=== PATIENT | female | born 1965 | race Asian ===

== ENCOUNTER 2018-04-04 01:41 | Emergency (ER) | payer OTHER ==
[2018-04-04 02:04] VITALS: BP 125/81; PULSE 85; TEMP 97.9; BMI 26.0
--- NOTE | 2018-04-04 02:09 | PDOC ---
History of Present Illness - General Chief Complaint: Pain, Acute Stated Complaint: L SIDED PAIN Time Seen by Provider: 04/04/18 02:09 History Source: Patient, Family - History of Present Illness Initial Comments: 04/04/18 02:45 52 year old female with PMH HTN, DM presented to ED for left upper abdominal burning since yesterday, worsening today. She stated the burning is constant, nonradiating, no alleviating or aggravating factors. She admitted to nausea, dysuria, left sided flank pain, and burning "all over". She denied chest pain, shortness of breath, vomiting, diarrhea, blood in stool, hematuria. She stated she ran out of her omeprazole 20 mg yesterday. Past History - Past Medical History Allergies/Adverse Reactions: Allergies Allergy/AdvReac Type Severity Reaction Status Date / Time No Known Drug Allergies Allergy Verified 04/04/18 02:04 Home Medications: Ambulatory Orders Oseltamivir Phosphate [Tamiflu -] 75 mg PO BID #10 capsule 08/25/15 Promethazine HCl/Codeine [Prometh-Codein 6.25-10 mg/5 ml] 5 ml PO Q8H PRN #60 syrup MDD 4 08/25/15 Anemia: No Asthma: No Cancer: No Cardiac Disorders: No CVA: No COPD: No CHF: No Dementia: No Diabetes: No GI Disorders: Yes (GERD) Disorders: Yes (RENAL CALCULI) HTN: No Hypercholesterolemia: No Liver Disease: No Seizures: No Thyroid Disease: No - Surgical History Abdominal Surgery: No Appendectomy: No Cardiac Surgery: No Cholecystectomy: No Lung Surgery: No Neurologic Surgery: No Orthopedic Surgery: No - Suicide/Smoking/Psychosocial Hx Smoking Status: No Smoking History: Never smoked Have you smoked in the past 12 months: No Number of Cigarettes Smoked Daily: 0 Information on smoking cessation initiated: No Hx Alcohol Use: No Drug/Substance Use Hx: No Substance Use Type: None Hx Substance Use Treatment: No Review of Systems - Review of Systems Able to Perform ROS?: Yes Constitutional: No: Chills, Fever HEENTM: No: Nose Congestion, Throat Pain Respiratory: No: Cough, Shortness of Breath Cardiac (ROS): No: Chest Pain, Palpitations ABD/GI: Yes: Nausea. No: Blood Streaked Bowels, Diarrhea, Vomiting, Tarry Stools : Yes: Dysuria, Flank Pain. No: Hematuria Musculoskeletal: No: Joint Swelling, Joint Stiffness Neurological: No: Numbness, Tingling, Dizziness Hematologic/Lymphatic: No: Easy Bleeding, Easy Bruising *Physical Exam - Vital Signs Last Vital Signs Temp Pulse Resp BP Pulse Ox 97.9 F 85 17 125/81 98 04/04/18 01:45 04/04/18 01:45 04/04/18 01:45 04/04/18 01:45 04/04/18 01:45 - Physical Exam Comments: 04/04/18 02:55 Constitutional: well developed, well nourished. HEENT: head is normocephalic, atraumatic. EOMI. PERRLA. dry oral mucosa. Neck: supple. full ROM. Heart: regular rhythm. no murmurs. Lungs: nonlabored breathing. clear to auscultation bilaterally. Abdomen: soft, nontender. normal bowel sounds. no rebound, no guarding. Back: no CVA tenderness bilaterally. Extremities: peripheral pulses intact and equal. no lower extremity edema. Neurological: CN2-12 grossly intact. Moves all four extremities. Psych: awake, alert, oriented to person. follows commands. answers questions appropriately. ED Treatment Course - LABORATORY CBC & Chemistry Diagram: 04/04/18 02:30 04/04/18 02:30 Medical Decision Making - Medical Decision Making 04/04/18 02:57 52 year old female with PMH HTN, DM presented to ED for LUQ burning, dysuria, nausea, "burning all over" x2 days, worsening today. Initial Vital Signs Temp Pulse Resp BP Pulse Ox 97.9 F 85 17 125/81 98 04/04/18 01:45 04/04/18 01:45 04/04/18 01:45 04/04/18 01:45 04/04/18 01:45 Afebrile. No tachycardia. No tachypnea. No hypotension. No hypoxia on room air. Pending EKG, troponin and CK x2. Pending CBC, CMP, lipase. Pending UA/UC. Tylenol ordered for pain. Pepcid and Maalox ordered for epigastric burning. 04/04/18 04:40 Labs reviewed: - No leukocytosis, no anemia - No electrolyte abnormalities, no CAROL - UA positive for blood, no UTI - Troponin negative - CK negative Spiral Abdominal CT ordered for evaluation of nephrolithiasis. Pending EKG and repeat cardiac enzymes. 04/04/18 05:50 Repeat troponin and CK negative. 04/04/18 06:23 EKG performed at 0556: rate 75, regular rhythm, normal axis, normal intervals, no acute ST changes. CT abdomen/pelvis report: no localized findings for acute pathology. Pt to be discharged. *DC/Admit/Observation/Transfer Diagnosis at time of Disposition: Epigastric burning sensation - Discharge Dispostion Disposition: HOME Condition at time of disposition: Stable Decision to Admit order: No - Referrals Referrals: Ricky Nava MD [Primary Care Provider] - - Patient Instructions Additional Instructions: You were seen today for upper abdominal burning sensation. Your lab work was normal. Your urine analysis showed no urinary tract infection, but did show blood in the urine, follow up on this finding with your primary care doctor. Your Catscan of your abdomen was normal, there is no kidney stone. Your EKG was normal. Follow up with your primary care doctor in 1-2 days, call their office today and make an appointment for as soon as available. Return to the Emergency Department for increasing pain, shortness of breath, chest pain, palpitations, racing heart, lightheadedness like you may pass out, vomiting, fever or any other new, worsening or concerning symptoms. Call the pharmacy today to refill your omeprazole prescription. - Post Discharge Activity Forms/Work/School Notes: Back to Work
--- NOTE | 2018-04-04 02:12 | PDOC ---
Attending Attestation - Resident Resident Name: JayceeZoya rao - HPI HPI: 04/04/18 05:00 pt presents to the ED complaining of burning pain to her epigastrium and left flank. Denies fever, nausea or vomiting. Complains of urinary frequency without dysuria. - Physicial Exam PE: 04/04/18 05:04 Agree with resident exam. Patient is alert and oriented and in no acute distress. Abdomen is soft, non tender and non distended. - Medical Decision Making 04/04/18 05:06 Pt presents to the ED complaining of L flank pain. Abdomen is non tender. LAbs are unremarkable except for hematuria. Will check CT non con to rule out renal stone.
[2018-04-04] MEDS ORDERED: FAMOTIDINE 20 MG/50 ML IVPB 20 MG/50 ML MG IVPB ONE ×2 (02:44→03:07)
[2018-04-04] MEDS ORDERED: MAG HYDROX/AL HYDROX/SIMETH 30 ML UNIT-DOSE CUP PO ONE (02:45)
[2018-04-04] MEDS ORDERED: ONDANSETRON 4 MG/2 ML VIAL IVPUSH ONE (02:45)
[2018-04-04 02:55] LABS: URINE APPEARANCE CLEAR; URINE BILIRUBIN NEGATIVE (<2.0 mg/dL); URINE COLOR STRAW; URINE GLUCOSE (UA) NEGATIVE (NEGATIVE); URINE KETONE NEGATIVE (NEGATIVE); URINE LEUK ESTERASE TRACE (NEGATIVE); URINE NITRITE NEGATIVE (NEGATIVE); URINE PROTEIN NEGATIVE (NEGATIVE); URINE UROBILINOGEN NEGATIVE mg/dL (0.2-1.0)
[2018-04-04] MEDS ORDERED: ACETAMINOPHEN 1000 MG/100 ML VIAL (NON FORMULARY) IVPB ONE (02:57)
[2018-04-04 03:01] LABS: EPI CELLS RARE /HPF (FEW); URINE BACTERIA RARE /hpf (NONE SEEN); URINE MUCUS RARE
[2018-04-04 03:03] LABS: EOS % 2.4 % (0-4.5); LYMPH % 23.8 % (8-40); MCH 27.7 pg (25.7-33.7); MCHC 34.1 g/dl (32.0-36.0); MEAN CELL VOLUME 81.5 fl (80-96); MEAN PLT VOLUME 8.9 fl (7.5-11.1); MONO % 7.3 % (3.8-10.2); NEUT % 65.5 % (42.8-82.8); PLATELET COUNT 360 K/MM3 (134-434); RBC 5.04 M/mm3 (3.60-5.2); RDW 14.1 % (11.6-15.6); WHITE BLOOD COUNT 8.7 K/mm3 (4.0-10.0)
[2018-04-04] MEDS ORDERED: MAG HYDROX/AL HYDROX/SIMETH 30 ML UNIT-DOSE CUP ONE (03:07)
[2018-04-04] MEDS ORDERED: ONDANSETRON 4 MG/2 ML VIAL ONE (03:07)
[2018-04-04] MEDS ORDERED: ACETAMINOPHEN INJECTION 100 ML IVPB ONE (03:07)
[2018-04-04 03:16] LABS: INR 0.98 (0.83-1.09); PROTHROMBIN TIME (PATIENT) 11.6 SEC (9.7-13.0)
[2018-04-04 03:18] LABS: ACTIVATED PTT 30.4 SECONDS (25.2-36.5)
[2018-04-04 03:41] LABS: ALK PHOS 132 U/L (45-117); ANION GAP 7 MMOL/L (8-16); BLOOD UREA NITROGEN 9 mg/dL (7-18); CHLORIDE 103 mmol/L (98-107); CO2 29 mmol/L (21-32); CREATININE 0.7 mg/dL (0.55-1.3); GLUCOSE,RANDOM 103 mg/dL (74-106); LIPASE 179 U/L (73-393); POTASSIUM 4.6 mmol/L (3.5-5.1); SGOT/AST 19 U/L (15-37); SGPT/ALT 29 U/L (13-61); SODIUM 139 mmol/L (136-145); TOT PROT 7.8 g/dl (6.4-8.2)
--- NOTE | 2018-04-04 10:33 | EKG ---
Test Reason : Blood Pressure : / mmHG Vent. Rate : 075 BPM Atrial Rate : 075 BPM P-R Int : 168 ms QRS Dur : 086 ms QT Int : 390 ms P-R-T Axes : 044 002 010 degrees QTc Int : 435 ms NORMAL SINUS RHYTHM NORMAL ECG WHEN COMPARED WITH ECG OF 21-MAR-2014 15:48, NO SIGNIFICANT CHANGE WAS FOUND Confirmed by Juan Manuel Phillips MD ([id number]) on 04/04/2018 10:33:06 AM Referred By: Confirmed By:Juan Manuel Phillips MD
== END 2018-04-04 06:37 | disposition home or self-care (01) ==
LOC: JER 01:41
PROC: 3E033GC Introduction of Other Therapeutic Substance into Peripheral Vein, Percutaneous Approach (ICD-10-PCS; principal; 2018-04-04)
PROC: 3E033NZ Introduction of Analgesics, Hypnotics, Sedatives into Peripheral Vein, Percutaneous Approach (ICD-10-PCS; 2018-04-04)
PROC: 3E033GC Introduction of Other Therapeutic Substance into Peripheral Vein, Percutaneous Approach (ICD-10-PCS; 2018-04-04)
DX: R10.13 Epigastric pain (principal); K21.9 Gastro-esophageal reflux disease without esophagitis; Z87.442 Personal history of urinary calculi
CPT/HCPCS: 36415; 74176; 80053; 81003; 81015; 82550; 83690; 84484; 85025; 85610; 85730; 87086; 93005; 93010; 96365; 96375; 99282-25; J0131

== ENCOUNTER 2019-12-15 16:19 | Emergency (ER) | payer OTHER ==
[2019-12-15 16:27] VITALS: BP 113/67; PULSE 85; TEMP 98; BMI 27.3
--- NOTE | 2019-12-15 16:27 | PDOC ---
Rapid Medical Evaluation Time Seen by Provider: 12/15/19 16:23 Medical Evaluation: Allergies Allergy/AdvReac Type Severity Reaction Status Date / Time No Known Drug Allergies Allergy Verified 12/15/19 16:23 12/15/19 16:23 I performed a brief in-person evaluation of this patient. Pt is a 54 y/o female with complaint of right sided headache for the last 5 days. She is sensitive to light. She has been having nausea and vomiting. She has not headaches like this for a long time. Gradually getting worse. Walking makes the MUNGUIA worse. Pertinent physical exam findings: walking without ataxia, speaking in full sentences, no significant facial droop I have ordered the following: labs, ct head, saline lock, reglan Patient to proceed to ED for further evaluation. Discharge Disposition - Diagnosis Headache - Referrals - Patient Instructions - Post Discharge Activity
[2019-12-15] MEDS ORDERED: METOCLOPRAMIDE HCL INJECTION 10 MG/2 ML VIAL IVPB ONE (16:28)
[2019-12-15] MEDS ORDERED: SODIUM CHLORIDE 0.9% 500 ML INFUS.BAG IV ONE (16:28)
[2019-12-15] MEDS ORDERED: METOCLOPRAMIDE HCL INJECTION 10 MG/2 ML VIAL ONE (17:47)
--- NOTE | 2019-12-15 17:56 | PDOC ---
History of Present Illness - General Chief Complaint: CVA/TIA Stated Complaint: REFERRED BY PCP MIGRANES Time Seen by Provider: 12/15/19 16:23 - History of Present Illness Initial Comments: Pt is a 54yo F with hx of DM and HTN who presents with headache. Pt speaks Upper Sorbian, and daughter is at bedside translating. Pt has had R sided headache for 5 days, described as a sharp constant pain that is worse with movement, gradually worse heide over the last 2 days. At rest, pain is 7-8/10 and with movement, pain is 10/10. Pt was seen by Dr. Quinones for similar symptoms two days ago and was given sumatriptan, which has not improved symptoms. She has also tried Tylenol with no improvement. Head pain is located diffusely throughout R head, R ear, and R neck, with most pain at R occiput. Reports associated decrease in vision over last 5 days, generalized weakness, paresthesias to b/l fingertips, dizziness (room spinning), and nausea. Reports history of similar R sided headaches >15 years ago, which was treated with unknown medication and injections in [place]. Reports long standing history of L left pain. Denies f/c, vomiting, chest pain, abdominal pain, syncope. PCP: Joni PMH: DM and HTN (not on medications; per chart review) Meds: omeprazole, duloxetine (denies any recent changes in medications) All: NKDA Social: denies tobacco, etoh, and illicit drug use 12/15/19 18:58 Past History - Medical History Allergies/Adverse Reactions: Allergies Allergy/AdvReac Type Severity Reaction Status Date / Time No Known Drug Allergies Allergy Verified 12/15/19 16:23 Home Medications: Ambulatory Orders Oseltamivir Phosphate [Tamiflu -] 75 mg PO BID #10 capsule 08/25/15 Promethazine HCl/Codeine [Prometh-Codein 6.25-10 mg/5 ml] 5 ml PO Q8H PRN #60 syrup MDD 4 08/25/15 Anemia: No Asthma: No Cancer: No Cardiac Disorders: No CVA: No COPD: No CHF: No Dementia: No Diabetes: No GI Disorders: Yes (GERD) Disorders: Yes (RENAL CALCULI) HTN: No Hypercholesterolemia: No Liver Disease: No Seizures: No Thyroid Disease: No - Surgical History Abdominal Surgery: No Appendectomy: No Cardiac Surgery: No Cholecystectomy: No Lung Surgery: No Neurologic Surgery: No Orthopedic Surgery: No - Psycho-Social/Smoking History Smoking Status: No Smoking History: Never smoked Have you smoked in the past 12 months: No Number of Cigarettes Smoked Daily: 0 - Substance Abuse Hx (Audit-C & DAST Scrn) How often the patient has a drink containing alcohol: Never Score: In Men: 4 or > Positive; In Women: 3 or > Positive: 0 Screen Result (Pos requires Nsg. Audit-10AR): Negative In the last yr the pt used illegal drug/Rx for NonMed reason: No Score: Yes response is considered Positive: 0 Screen Result (Positive result requires Nsg. DAST-10): Negative Review of Systems - Review of Systems Comments:: CONSTITUTIONAL:denies fever, chills, diaphoresis, generalized weakness, malaise, loss of appetite HEENT:reports R ear pain, visual changes; denies rhinorrhea, nasal congestion, sore throat, eye pain CARDIOVASCULAR:denies chest pain, syncope, palpitations, irregular heart rate, peripheral edema RESPIRATORY:denies cough, shortness of breath, wheezing GASTROINTESTINAL: reports nausea; denies abdominal pain, vomiting, diarrhea, constipation, melena, hematochezia GENITOURINARY:denies dysuria, frequency, urgency, hesitancy, hematuria MUSCULOSKELETAL: reports R neck pain;denies myalgia, arthralgia, back pain HEMATOLOGIC/IMMUNOLOGIC:denies easy bleeding, easy bruising ENDOCRINE: denies unexplained weight gain, unexplained weight loss NEUROLOGIC:reports headache, paresthesias of b/l fingertips, dizziness; denies LOC, unsteady gait, mental status changes, bladder or bowel incontinence SKIN:denies rash, itching *Physical Exam - Vital Signs Last Vital Signs Temp Pulse Resp BP Pulse Ox 98.0 F 85 18 113/67 100 12/15/19 16:23 12/15/19 16:23 12/15/19 16:23 12/15/19 16:23 12/15/19 16:23 - Physical Exam General: awake, alert, fully oriented, in no acute distress, well developed, well nourished Head: normocephalic, atraumatic Eyes: PERRL, EOMI, anicteric sclera, conjunctiva clear ENT: Auricles normal inspection, hearing grossly normal, nares patent, oropharynx clear without exudates. No nasal congestion Moist mucous membranes Neck: supple, normal ROM, no LAD, JVD or masses Lung: equal breath sounds b/l, CTA b/l, no crackles, wheezes; no distress, speaks full sentences Heart: RRR, normal S1, S2, no murmurs, rubs, gallops Abdomen: soft, non tender, normoactive bowel sounds, no guarding, rebound, masses Extremities: normal ROM, no edema, no erythema or tenderness, DP/PT pulses 2+ and symmetric, no clubbing, cyanosis Neuro: CN2-12 intact, moves all extremities, normal speech, normal gait, sensation intact, normal cerebellar exam; NIHSS 0 Skin: warm, dry, no rashes or lesions noted ED Treatment Course - LABORATORY CBC & Chemistry Diagram: 12/15/19 18:12 12/15/19 18:12 Medical Decision Making - Medical Decision Making Pt is 54yo F with DM and HTN who presents with headache. Vital Signs Period Temp Pulse Resp BP Sys/Long Pulse Ox Last 24 Hr 98.0 F 85 18 113/67 100 DDx: cluster headache, migraine, temporal arteritis Plan: pain control, head CT signed out patient to night team, pending reassessment, head CT Discharge - Discharge Information Problems reviewed: Yes Clinical Impression/Diagnosis: Headache Qualifiers: Headache type: unspecified Headache chronicity pattern: acute headache Intractability: not intractable Qualified Code(s): R51 - Headache Condition: Improved Disposition: HOME - Follow up/Referral Referrals: Jeramy Cerda MD [Staff Physician] - Caleb Gunderson MD [Staff Physician] - Tello Quinones MD [Primary Care Provider] - - Patient Discharge Instructions Patient Printed Discharge Instructions: DI for Headache Additional Instructions: You were seen in the ED for a headache and reported improvement after receiving medications follow-up with PCP in 1-2 days and to return to the ED for worsening of headache or any other concerns It is equally important that you follow up with a neurologist in the next 1-2 days as well we have provided their information in this discharge packet. RETURN TO THE ER: if your headache returns and is not relieved with tylenol or the medications prescribed by your doctor -fevers, chills, -nausea and vomiting that will not stop. - Post Discharge Activity
[2019-12-15 18:19] LABS: EOS % 0.8 % (0-4.5); HEMATOCRIT 39.7 % (32.4-45.2); HEMOGLOBIN 12.8 GM/dL (10.7-15.3); MCH 26.2 pg (25.7-33.7); MCHC 32.3 g/dl (32.0-36.0); MEAN CELL VOLUME 81.2 fl (80-96); MEAN PLT VOLUME 8.7 fl (7.5-11.1); MONO % 5.9 % (3.8-10.2); NEUT % 75.3 % (42.8-82.8); PLATELET COUNT 330 K/MM3 (134-434); RBC 4.89 M/mm3 (3.60-5.2); RDW 14.4 % (11.6-15.6)
[2019-12-15 18:38] LABS: PROTHROMBIN TIME (PATIENT) 11.8 SEC (9.7-13.0)
[2019-12-15 18:49] LABS: ALBUMIN 3.9 g/dl (3.4-5.0); BILIRUBIN,TOTAL 0.6 mg/dL (0.2-1); BLOOD UREA NITROGEN 25.8 mg/dL (7-18); CALCIUM 9.6 mg/dL (8.5-10.1); CREATININE 0.7 mg/dL (0.55-1.3); POTASSIUM 3.9 mmol/L (3.5-5.1)
[2019-12-15] MEDS ORDERED: ACETAMINOPHEN 1000 MG/100 ML VIAL (NON FORMULARY) IVPB ONE (19:00)
--- NOTE | 2019-12-15 19:19 | PDOC ---
*Physical Exam - Vital Signs Last Vital Signs Temp Pulse Resp BP Pulse Ox 98.0 F 85 18 113/67 100 12/15/19 16:23 12/15/19 16:23 12/15/19 16:23 12/15/19 16:23 12/15/19 16:23 ED Treatment Course - LABORATORY CBC & Chemistry Diagram: 12/15/19 18:12 12/15/19 18:12 - ADDITIONAL ORDERS Additional order review: Laboratory Results 12/15/19 12/15/19 18:12 18:12 PT with INR 11.80 INR 1.00 Sodium 141 Potassium 3.9 Chloride 110 H Carbon Dioxide 26 Anion Gap 5 L BUN 25.8 H Creatinine 0.7 Est GFR (CKD-EPI)AfAm 113.05 Est GFR (CKD-EPI)NonAf 97.54 Random Glucose 104 Calcium 9.6 Total Bilirubin 0.6 AST 13 L ALT 25 Alkaline Phosphatase 118 H Total Protein 8.0 Albumin 3.9 12/15/19 18:12 RBC 4.89 MCV 81.2 MCHC 32.3 RDW 14.4 MPV 8.7 Neutrophils % 75.3 Lymphocytes % 17.0 D Monocytes % 5.9 Eosinophils % 0.8 Basophils % 1.0 - Medications Given in the ED: ED Medications Discontinued Medications Generic Name Dose Route Start Last Admin Trade Name Freq PRN Reason Stop Dose Admin Diphenhydramine HCl 25 mg 12/15/19 16:57 12/15/19 17:51 Benadryl Injection - IVPUSH 12/15/19 16:58 25 mg ONCE ONE Administration Metoclopramide HCl 10 mg 12/15/19 16:28 12/15/19 17:51 Reglan Injection - IVPB 12/15/19 16:29 10 mg ONCE ONE Administration Sodium Chloride 1,000 ml 12/15/19 16:28 12/15/19 17:51 Normal Saline - IV 12/15/19 16:29 1,000 ml ONCE ONE Administration Medical Decision Making - Medical Decision Making 12/15/19 19:18 54yo F with hx of DM and HTN who presents with headache of 5 day duration Dorcas Quinones, prescribed sumatriptan and tylenol which have not relieved pain pending ct read and reassesment of pain head ct: no acute intracranial pathology 12/15/19 19:45 pt feeling better after medications will d/c home with neurology follow up. 12/15/19 19:53 Discharge - Discharge Information Problems reviewed: Yes Clinical Impression/Diagnosis: Headache Condition: Improved Disposition: HOME - Follow up/Referral Referrals: Tello Quinones MD [Primary Care Provider] - Jeramy Cerda MD [Staff Physician] - Caleb Gunderson MD [Staff Physician] - - Patient Discharge Instructions Patient Printed Discharge Instructions: DI for Headache Additional Instructions: You were seen in the ED for a headache and reported improvement after receiving medications follow-up with PCP in 1-2 days and to return to the ED for worsening of headache or any other concerns It is equally important that you follow up with a neurologist in the next 1-2 days as well we have provided their information in this discharge packet. RETURN TO THE ER: if your headache returns and is not relieved with tylenol or the medications prescribed by your doctor -fevers, chills, -nausea and vomiting that will not stop. - Post Discharge Activity
[2019-12-15] MEDS ORDERED: ACETAMINOPHEN INJECTION 100 ML IVPB ONE (19:23)
--- NOTE | 2019-12-15 19:48 | PDOC ---
Documentation entered by Xuan Madden SCRIBE, acting as scribe for Allison Manzanares MD. Alliosn Manzanares MD: This documentation has been prepared by the scribe, Xuan Madden SCRIBE, under my direction and personally reviewed by me in its entirety. I confirm that the documentation accurately reflects all work, treatment, procedures, and medical decision making performed by me. Attending Attestation - Resident Resident Name: Sanjuanita Light - ED Attending Attestation I have performed the following: I have examined & evaluated the patient, The case was reviewed & discussed with the resident, I agree w/resident's findings & plan - HPI HPI: 12/15/19 17:13 Ms. Bel Turner is a 54-year-old female with a past medical history significant for HTN and DM who presents to the emergency department with 5 days of gradually worsening, sharp, constant, right-sided headache associated with bilateral blurry vision and nausea. The patient reports she was taking Tylenol morning and night for the first 2 days without relief, Patient followed up with PCP who prescribed Sumatriptan, reports shes been taking the medication since, without relief. Denies similar headaches in the past. Denies fever, chills, chest pain, SOB, palpitation, dizziness, weakness, diarrhea, vomiting, abdominal pain, bladder and bowel problems, leg swelling, No sick contacts or travel. No new changes in medications. Allergies: NKDA Past Medical History: HTN and DM. Social history: Lives with family. No tobacco, ETOH or drug use. Surgical history: None reported. Meds: as documented in EMR PMD: Dr. Gerardo Quinones. - Physicial Exam PE: 12/15/19 17:15 Agree with the resident's HPI and PE as documented in the electronic medical record. NAD, alert and awake, oriented appropriately, well appearing, CN II-XII grossly intact. EOMI, PERRL, nl conjunctiva, anicteric; neck supple. lungs clear, RRR, abdomen soft nontender. No rebound, no guarding. Back nontender. KAUFMAN x4, no focal neuro deficits. Strength prox and distally 5/5 throughout. Sensation grossly intact to light touch. KAUFMAN x4. No cerebellar signs, no dysmetria, bilateral finger to nose and heel to [place] equal and symmetric. Speech clear. No peripheral edema. normal color for ethnicity, WWP. 12/15/19 19:47 - Medical Decision Making 12/15/19 19:46 Vital Signs Temp Pulse Resp BP Pulse Ox 98.0 F 85 18 113/67 100 12/15/19 16:23 12/15/19 16:23 12/15/19 16:23 12/15/19 16:23 12/15/19 16:23 DDX headache: migraine, tension, cluster headache, SAH, CVA, head bleed/ICH. vitals reviewed, wnl neuro intact, no deficits MDM: The patient presents with an acute onset headache for 5 days in duration. Patient has past history of headaches. There Is Not a history of ant icoagulation, trauma, , cancer or immunocompromised state. Mental status was normal, no neurological deficits were noted. - Based on the patient's history and physical there is very low clinical suspicion for significant intracranial pathology. The headache was NOT sudden onset, NOT maximal at onset, there are NO neurologic findings, the patient does NOT have a fever, the patient does NOT have any jaw claudication, the patient does NOT endorse a clotting disorder, patient DENIES any trauma or eye pain and the headache is NOT associated with dizziness or ataxia. Will treatment the pat ient symptomatically and reassess. - no meningeal signs Kernig and Brudzinski signs are negative, no petechiae, no photophobia, no dysarthria, no facial asymmetry, and no focal deficits. Very low clinical suspicion for meningitis. No evidence of subarachnoid hemorrhage, intracranial bleed, meningitis, encephalitis, temporal arteritis, or intracranial mass. Patient denies new weakness on one side of the body, diplopia, vertigo, slurred speech, headache, or difficulty walking. IV was placed and tylenol given with symptom relief CT head was negative for acute bleed, infarct, mass, or shift. no LP indicated, clinically doubt SAH with history. The patient improved significantly and was discharged in stable condition. Recommendations were given for follow-up with PCP and neurology in 1-2 days and to return to the ED for worsening of headache or any other concerns Discharge - Discharge Information Problems reviewed: Yes Clinical Impression/Diagnosis: Headache Condition: Improved Disposition: HOME - Admission No - Follow up/Referral Referrals: Jeramy Cerda MD [Staff Physician] - Caleb Gunderson MD [Staff Physician] - Tello Quinones MD [Primary Care Provider] - - Patient Discharge Instructions Patient Printed Discharge Instructions: DI for Headache Additional Instructions: You were seen in the ED for a headache and reported improvement after receiving medications follow-up with PCP in 1-2 days and to return to the ED for worsening of headache or any other concerns It is equally important that you follow up with a neurologist in the next 1-2 days as well we have provided their information in this discharge packet. RETURN TO THE ER: if your headache returns and is not relieved with tylenol or the medications prescribed by your doctor -fevers, chills, -nausea and vomiting that will not stop. - Post Discharge Activity
== END 2019-12-15 20:24 | disposition home or self-care (01) ==
LOC: JER 16:19
PROC: 3E0333Z Introduction of Anti-inflammatory into Peripheral Vein, Percutaneous Approach (ICD-10-PCS; principal; 2019-12-15)
PROC: 3E033GC Introduction of Other Therapeutic Substance into Peripheral Vein, Percutaneous Approach (ICD-10-PCS; 2019-12-15)
DX: R51 Headache (principal)
CPT/HCPCS: 36415; 70450-TC; 80053; 85025; 85610; 99284-25; J0131